=== PATIENT | female | born 1970 | race Caucasian/White ===

== ENCOUNTER 2017-07-31 11:28 | Emergency (ER) | payer MEDICAID, SELFPAY ==
[2017-07-31 11:28] VITALS: O2SAT 90
--- NOTE | 2017-07-31 11:54 | NURSING ---
PLEASE SEE CODE SHEET FOR ALL DOCUMENTATION
--- NOTE | 2017-07-31 12:28 | ED.DCSUM_ITS ---
- ER Visit Summary Date of Service: 07/31/17 Chief Complaint: Pulmonary arrest History of Present Illness: The patient is a 47 F was found by her son lying in her bed unresponsive. Per paramedics last seen well 1 hour prior to son finding her unresponsive. She has a past medical history hypertension, type 2 diabetes and chronic back pain. Because of the history of chronic back pain and the fact that she is on OxyContin 1 amp of Narcan was given. ACLS algorithm was followed for V. fib. When patient arrived she had fixed dilated pupils with a GCS of 3T. Physical Examination: Morbidly obese woman who presented intubated with a GCS of 3T and fixed dilated pupils. Monitor revealed V. fib. Patient was treated with epinephrine and defibrillated. See nurse's notes for times and treatment interventions. Because the paramedics reported a high glucose she received 1 amp of bicarb and 1 amp of calcium chloride for possible hyperkalemia secondary to DKA. Breath sounds were noted bilaterally. Missed was noted in the endotracheal tube and there was appropriate color change on capnometer. And CO2 red 33-40. One would expect a low number since she had no viable rhythm. Test Results: None Emergency Department Course and Treatment: Treatment for V. fib and possible hyperkalemia Treatment Plan: Confirmation of proper position of endotracheal tube and algorithm for V. fib and hyperkalemia. Patient was pronounced at 1129 Disposition: Soda Room Operator's case Impression: Cardiopulmonary arrest of unknown etiology History of type 2 diabetes History of hypertension History of chronic back pain This note was generated with [employer] dictation software. It may contain incorrect words, spelling, and punctuation that were not noted in review of the chart prior to signing ED Disposition - Plan for ED Patient: Chief Complaint: CPR Referrals: Roma Sherwood DO [Primary Care Provider] -
--- NOTE | 2017-07-31 12:36 | CASEMGMT ---
Responded to [employer] page. This worker was present as pt arrived and [facility] report. Per squad, family had found pt unresponsive at home; family following squad to ED. Met with pt's significant other and her son upon arrival to ED. Notified Dr. Angel of their arrival and accompanied him as he met privately with family to notify them of pt's . Emotional support provided. Family requested to see the pt. Confirmed with nursing they were ready to receive family in the room. Explained to loved ones why interventions (intubation, IV access, etc.) would be left in place for the time being, then accompanied them to bedside. Family with pt at this time. Will continue to follow and offer services prn.
--- NOTE | 2017-07-31 17:04 | ED.RN ---
STAFF FROM [facility] HERE TO TAX COMPLIANCE REPRESENTATIVE PT'S BODY.
== END 2017-07-31 17:05 ==
PROVIDERS: Emergency Provider Emergency Medicine; Family Provider Family Medicine; PCP Family Medicine
DX: I46.9 Cardiac arrest, cause unspecified (principal); E11.9 Type 2 diabetes mellitus without complications; I10 Essential (primary) hypertension; G89.29 Other chronic pain; M54.9 Dorsalgia, unspecified; Z72.0 Tobacco use; E66.01 Morbid (severe) obesity due to excess calories
CPT/HCPCS: 92950; 99285; J7030; A4216